=== PATIENT | female | born 1955 | race African-American/Black ===

== ENCOUNTER 2018-04-19 15:47 | Emergency (ER) | payer OTHER ==
[~2018-04-19] VITALS: Ht 157.5 cm; Wt 77.3 kg
[~2018-04-19 15:47] MED LIST: LOVA40TA2 PO; TRIA-17 PO
[2018-04-19] MEDS ORDERED: CEPH500 PO (16:00)
[2018-04-19] MEDS ORDERED: METF-445 PO (16:00)
[2018-04-19] MEDS ORDERED: ASPI81 PO (16:00)
[2018-04-19] MEDS ORDERED: LISI-662 PO (16:00)
[2018-04-19] MEDS ORDERED: VITAD1000 PO (16:00)
[2018-04-19] MEDS ORDERED: ATOR40TA28 PO (16:00)
[2018-04-19 16:03] LABS: GLUCOSE,POINT OF CARE 211 MG/DL (70-110)
[2018-04-19] MEDS ORDERED: ONDANSETRON HCL 4 MG/2 ML VIAL IVP ONE (16:30)
[2018-04-19] MEDS ORDERED: LOPERAMIDE HCL 2 MG CAPSULE PO ONE (16:30)
[2018-04-19] MEDS ORDERED: SODIUM CHLORIDE 0.9% 1,000 ML IV ONE (16:30)
[2018-04-19 16:51] LABS: BASOPHILS % (AUTO) 0.6 % (0.0-2.0); EOSINOPHILS % (AUTO) 0.8 % (1.0-6.0); HEMATOCRIT 43.1 % (36-46); HEMOGLOBIN 14.5 g/dL (12.0-16.0); LYMPHOCYTES # (AUTO) 1.8 K/uL (1.0-4.8); MEAN CORPUSCULAR HEMOGLOBIN 26.9 pg (26.0-34.0); MEAN CORPUSCULAR HGB CONC 33.6 G/dL (31.0-37.0); MEAN CORPUSCULAR VOLUME 80 fL (80-100); MONOCYTES # (AUTO) 0.9 K/uL (0.1-1.0); MONOCYTES % (AUTO) 8.9 % (2.0-9.0); NEUTROPHILS % (AUTO) 71.7 % (40.0-70.0); PLATELET COUNT (AUTO) 394 K/uL (150-450); RED BLOOD CELL COUNT(AUTO) 5.38 MIL/uL (4.00-5.20); RED CELL DISTRIBUTION WIDTH 13.4 % (11.5-14.5)
[2018-04-19 17:03] LABS: CALCIUM, TOTAL 10.3 mg/dL (8.8-10.5); CREATININE 1.52 mg/dL (0.60-1.30); POTASSIUM 3.5 mmol/L (3.5-5.1)
[2018-04-19 17:09] LABS: BILIRUBIN,TOTAL 0.6 mg/dL (0.1-1.0); TOTAL PROTEIN, SERUM 8.6 g/dL (6.4-8.2)
[2018-04-19 17:14] VITALS: BP 134/90
== END 2018-04-19 18:08 | disposition home or self-care (01) ==
LOC: EMS 15:48
DX: R11.2 Nausea with vomiting, unspecified (principal); R19.7 Diarrhea, unspecified; R10.84 Generalized abdominal pain; E11.9 Type 2 diabetes mellitus without complications; E78.00 Pure hypercholesterolemia, unspecified; I10 Essential (primary) hypertension; Z79.899 Other long term (current) drug therapy; Z79.84 Long term (current) use of oral hypoglycemic drugs; Z79.82 Long term (current) use of aspirin
CPT/HCPCS: 36415; 80053; 82962; 83605; 83690; 84484; 85025; 93005; 96361; 96374; 99285; J2405; J7030